=== PATIENT | male | born 1950 | race Caucasian/White ===

== ENCOUNTER → 2022-11-16 14:37 | Outpatient (BNVA) | payer MEDICARE, SELFPAY | PROVIDERS: PCP Internal Medicine; Visit Provider Psychiatry & Neurology Psychiatry | DX: F32.5 Major depressive disorder, single episode, in full remission (principal); F41.1 Generalized anxiety disorder; I10 Essential (primary) hypertension; E11.9 Type 2 diabetes mellitus without complications; E78.00 Pure hypercholesterolemia, unspecified | CPT/HCPCS: 90833; 99212 ==

== ENCOUNTER → 2023-03-15 12:03 | Outpatient (BNVA) | payer MEDICARE, SELFPAY | PROVIDERS: PCP Internal Medicine; Visit Provider Psychiatry & Neurology Psychiatry | DX: F32.5 Major depressive disorder, single episode, in full remission (principal); F41.1 Generalized anxiety disorder; E78.00 Pure hypercholesterolemia, unspecified; E11.9 Type 2 diabetes mellitus without complications; I10 Essential (primary) hypertension | CPT/HCPCS: 90833; 99212 ==

== ENCOUNTER → 2023-05-17 12:14 | Outpatient (BNVA) | payer MEDICARE, SELFPAY | PROVIDERS: PCP Internal Medicine; Visit Provider Psychiatry & Neurology Psychiatry ==

== ENCOUNTER 2023-08-16 10:58 | Outpatient (AMB) | payer MEDICARE, SELFPAY ==
--- NOTE | 2023-08-16 11:30 | MHC.OFFVISPS ---
Intake Intake Visit Reasons: Depression Allergies penicillin V Allergy (Mild, Verified 08/04/21 12:22) Rash Medication List - Last Reconciled 08/16/23 by Dom Ragland MD atorvastatin 80 mg PO DAILY diazepam 2 mg PO DAILY PRN 30 days empagliflozin (Jardiance) 18 mg PO DAILY fluticasone propion-salmeterol 250-50 mcg/dose (Wixela Inhub) 1 ea inhalation BID glipizide ER 5 mg PO lisinopril 20 mg PO DAILY metformin 1,000 mg PO DAILY mirtazapine 15 mg PO BEDTIME propranolol ER 120 mg PO DAILY HPI- Psychiatric Chief Complaint: Depression HPI Narrative: Patient continues to do generally well is a 72-year-old male continues to work 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 Sleep appetite okay ability to enjoy things intact future oriented does tend to ruminate at times. Uses Valium on very intermittent basis. PHQ-9 a 1 JEFFREY 6 No new medical concerns no complaints of side effects to current regimen Past Psychiatric History: With past history of some significant depression anxiety and past panic was in therapy in the past with Dr. James Mental Status Exam Mental Status Exam Patient Appearance: Well Grooomed Patient Orientation: Person, Place and Situation Level of Consciousness: Awake Patient Behavior: Appropriate Mood Description: Happy Affect Description: Calm and Cheerful Memory Description: Intact Hallucinations: None Thought Process: Intact Thought Content: positive for Intact Judgement: Good Assessment and Plan Assessment & Plan (1) Major depression in full remission: Status: Acute Code(s): F32.5 - Major depressive disorder, single episode, in full remission (2) Generalized anxiety disorder: Status: Acute Code(s): F41.1 - Generalized anxiety disorder (3) Diabetes type 2, controlled: Status: Acute Code(s): E11.9 - Type 2 diabetes mellitus without complications Plan Patient generally continues to do well we have discussed limiting use Valium. Mirtazapine continues to be quite helpful. Patient continues to get a lot of satisfaction his work at the [employer] engage with people physically active emotionally intellectually engaged we have discussed issues related to chcf and pros and cons Continue mirtazapine Counseling and coordination of Care Details-Self Mgmt counseling: Issues related to chcf interactions with others family relationships Medication management counseling: Effectiveness Diagnosis and Prognosis Counseling: Adequacy of current interventions Details: I spent [38] minutes reviewing the record, seeing the patient and documenting in the medical record. Counseling provided to the patient/caregiver as outlined below. Addressed patient/caregiver concerns regarding current medication regime including effective adherence. Addressed patient/caregiver concerns regarding diagnosis and prognosis including accuracy of diagnosis, prognosis over time, impact of diagnosis. Addressed patient/caregiver concerns regarding impact of recent stressors. 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
== END 2023-08-16 14:37 | disposition home or self-care (01) ==
LOC: HO.HOP 10:58
PROVIDERS: PCP Internal Medicine; Visit Provider Psychiatry & Neurology Psychiatry
DX: F32.5 Major depressive disorder, single episode, in full remission (principal); F41.1 Generalized anxiety disorder; E11.9 Type 2 diabetes mellitus without complications
CPT/HCPCS: 90833; 99213

== ENCOUNTER → 2023-08-16 10:58 | Outpatient (BNVA) | payer MEDICARE, SELFPAY | PROVIDERS: PCP Internal Medicine; Visit Provider Psychiatry & Neurology Psychiatry | DX: F32.5 Major depressive disorder, single episode, in full remission (principal); F41.1 Generalized anxiety disorder; E11.9 Type 2 diabetes mellitus without complications; Z79.899 Other long term (current) drug therapy | CPT/HCPCS: 90833; 99212 ==

== ENCOUNTER 2023-11-15 11:30 | Outpatient (AMB) | payer MEDICARE, SELFPAY ==
--- NOTE | 2023-11-15 11:48 | A.OFFPSYCH_ITS ---
Intake Intake Visit Reasons: depression Allergies penicillin V Allergy (Mild, Verified 08/04/21 12:22) Rash Medication List - Last Reconciled 11/15/23 by Dom Ragland MD atorvastatin 80 mg PO DAILY diazepam 2 mg PO DAILY PRN 30 days empagliflozin (Jardiance) 18 mg PO DAILY fluticasone propion-salmeterol 250-50 mcg/dose (Wixela Inhub) 1 ea inhalation BID glipizide ER 5 mg PO lisinopril 20 mg PO DAILY metformin 1,000 mg PO DAILY mirtazapine 15 mg PO BEDTIME propranolol ER 120 mg PO DAILY HPI- Psychiatric Chief Complaint: depression HPI Narrative: Pt has been doing well generally has had incidental calcium noted on thoracic exam. The patient's mood continues to be quite stable minimal periods of significant anxiety. He has generally over time developed a better quality of life close relationship with his children and grandchildren. He is thinking about moving perhaps to be closer to his kids. 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 He will be having a medical workup for incidental calcium noted on thoracic screening for pulmonary nodule Past Psychiatric History: With past history of some significant depression anxiety and past panic was in therapy in the past with Dr. James Mental Status Exam Mental Status Exam Patient Appearance: Well Grooomed Patient Orientation: Person, Place and Situation Level of Consciousness: Awake Patient Behavior: Appropriate Mood Description: Happy Affect Description: Calm and Cheerful Ability to Follow Directions: Excellent Speech Pattern: Clear Memory Description: Intact Hallucinations: None Thought Process: Intact Thought Content: positive for Intact Judgement: Good Assessment and Plan Assessment & Plan (1) Major depression in full remission: Status: Acute Code(s): F32.5 - Major depressive disorder, single episode, in full remission (2) Generalized anxiety disorder: Status: Acute Code(s): F41.1 - Generalized anxiety disorder Plan Extensive discussion around issues related to long term aging and the film the patient gets out of continued work. Discussed issues related to maintaining strength balance ways to manage this patient also was noted to have incidental calcium on his coronary arteries and will be having a nuclear stress test. Patient generally stable mirtazapine occasional low-dose diazepam which she has tolerated well for many years Counseling and coordination of Care Diagnosis and Prognosis Counseling: Adequacy of current interventions Details: I spent [38 minutes reviewing the record, seeing the patient and documenting in the medical record. Counseling provided to the patient/caregiver as outlined below. Addressed patient/caregiver concerns regarding current medication regime including effective adherence. Addressed patient/caregiver concerns regarding diagnosis and prognosis including accuracy of diagnosis, prognosis over time, impact of diagnosis. Addressed patient/caregiver concerns regarding impact of recent stressors. 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
== END 2023-11-15 20:14 | disposition home or self-care (01) ==
LOC: HO.HOP 11:31
PROVIDERS: PCP Internal Medicine; Visit Provider Psychiatry & Neurology Psychiatry
DX: F32.5 Major depressive disorder, single episode, in full remission (principal); F41.1 Generalized anxiety disorder
CPT/HCPCS: 90833; 99213

== ENCOUNTER → 2023-11-15 11:30 | Outpatient (BNVA) | payer MEDICARE, SELFPAY | PROVIDERS: PCP Internal Medicine; Visit Provider Psychiatry & Neurology Psychiatry | DX: F32.5 Major depressive disorder, single episode, in full remission (principal); F41.1 Generalized anxiety disorder | CPT/HCPCS: 99212 ==

== ENCOUNTER 2024-02-21 10:56 | Outpatient (AMB) | payer MEDICARE, SELFPAY ==
--- NOTE | 2024-02-21 11:22 | MHC.OFFVISPS ---
Intake Intake Visit Reasons: depression Allergies penicillin V Allergy (Mild, Verified 08/04/21 12:22) Rash Medication List - Last Reconciled 02/21/24 by Dom Ragland MD atorvastatin 80 mg PO DAILY diazepam 2 mg PO DAILY PRN 30 days empagliflozin (Jardiance) 25 mg PO DAILY fluticasone propion-salmeterol 250-50 mcg/dose (Wixela Inhub) 1 ea inhalation BID glipizide ER 5 mg PO lisinopril 20 mg PO DAILY metformin 1,000 mg PO DAILY mirtazapine 15 mg PO BEDTIME propranolol ER 120 mg PO DAILY HPI- Psychiatric Chief Complaint: depression HPI Narrative: Patient generally doing well chronic issues related to skilled nursing versus is peace of mind 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 Continues on mirtazapine very rare loose use of low-dose Valium. Issues related potential to move in conflict did regarding moving closer to his children versus staying where he is. History of generalized anxiety dysphoria but has gained perspective over time which more able to let things go less ruminating patient did have what appears to be nuclear stress test while ago results pending. There is a history diabetes he is concerned about his medical condition Past Psychiatric History: With past history of some significant depression anxiety and past panic was in therapy in the past with Dr. James Mental Status Exam Mental Status Exam Patient Appearance: Well Grooomed Patient Orientation: Person, Place and Situation Level of Consciousness: Awake Patient Behavior: Appropriate Mood Description: Happy Affect Description: Calm and Cheerful Ability to Follow Directions: Excellent Speech Pattern: Clear Memory Description: Intact Hallucinations: None Thought Process: Intact Thought Content: positive for Intact Judgement: Good Assessment and Plan Assessment & Plan (1) Generalized anxiety disorder: Status: Acute Code(s): F41.1 - Generalized anxiety disorder (2) Major depression in full remission: Status: Acute Code(s): F32.5 - Major depressive disorder, single episode, in full remission Plan Issues related to skilled nursing in work extensively discussed continue mirtazapine and low-dose Valium follow-up 4 months Medications: Refilled mirtazapine 15 mg PO BEDTIME 90 tabs 1RF diazepam 2 mg PO DAILY PRN 30 tabs 2RF anxiety 30 days Counseling and coordination of Care Details-Self Mgmt counseling: Perspective is in discussion and elaboration regarding issues related to skilled nursing quality of life pros and cons working level of satisfaction Diagnosis and Prognosis Counseling: Adequacy of current interventions Details: I spent [] minutes reviewing the record, seeing the patient and documenting in the medical record. Counseling provided to the patient/caregiver as outlined below. Addressed patient/caregiver concerns regarding current medication regime including effective adherence. Addressed patient/caregiver concerns regarding diagnosis and prognosis including accuracy of diagnosis, prognosis over time, impact of diagnosis. Addressed patient/caregiver concerns regarding impact of recent stressors. 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
== END 2024-02-21 11:37 | disposition home or self-care (01) ==
LOC: HO.HOP 10:57
PROVIDERS: PCP Internal Medicine; Visit Provider Psychiatry & Neurology Psychiatry
DX: F41.1 Generalized anxiety disorder (principal); F32.5 Major depressive disorder, single episode, in full remission
CPT/HCPCS: 99214

== ENCOUNTER → 2024-02-21 10:56 | Outpatient (BNVA) | payer MEDICARE, SELFPAY | PROVIDERS: PCP Internal Medicine; Visit Provider Psychiatry & Neurology Psychiatry | DX: F41.1 Generalized anxiety disorder (principal); F32.5 Major depressive disorder, single episode, in full remission | CPT/HCPCS: 99212 ==

== ENCOUNTER 2024-06-26 13:39 | Outpatient (AMB) | payer MEDICARE, SELFPAY ==
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
== END 2024-06-26 14:30 | disposition home or self-care (01) ==
LOC: HO.HOP 13:39
PROVIDERS: PCP Internal Medicine; Visit Provider Psychiatry & Neurology Psychiatry
DX: F33.2 Major depressive disorder, recurrent severe without psychotic features (principal); F41.1 Generalized anxiety disorder
CPT/HCPCS: 90833; 99213

== ENCOUNTER → 2024-06-26 13:39 | Outpatient (BNVA) | payer MEDICARE, SELFPAY | PROVIDERS: PCP Internal Medicine; Visit Provider Psychiatry & Neurology Psychiatry | DX: F33.2 Major depressive disorder, recurrent severe without psychotic features (principal); F41.1 Generalized anxiety disorder | CPT/HCPCS: 99212 ==

== ENCOUNTER 2024-07-10 12:59 | Outpatient (AMB) | payer MEDICARE, SELFPAY ==
--- NOTE | 2024-07-10 13:37 | A.OFFPSYCH_ITS ---
Intake Intake Visit Reasons: depression Allergies penicillin V Allergy (Mild, Verified 08/04/21 12:22) Rash HPI- Psychiatric Chief Complaint: depression HPI Narrative: Patient seen psychiatric follow-up. Patient's mood is somewhat improved PHQ-9 much improved no thoughts of self-harm. States he is seeing things in better perspective knows he is not in any place to make any decisions regarding employment nursing home or removing. Feeling better on higher dose mirtazapine . Feeling better able to handle issues at work less reactive and irritable Past Psychiatric History: With past history of some significant depression anxiety and past panic was in therapy in the past with Dr. James Mental Status Exam Mental Status Exam Patient Appearance: Well Grooomed Patient Orientation: Person, Place, Time and Situation Level of Consciousness: Awake and Appropriate Patient Behavior: Appropriate Mood Description: Constricted Affect Description: Appropriate and Blunted Patient Cognition Impaired: No Ability to Follow Directions: Good Speech Pattern: Clear Memory Description: Intact Hallucinations: None Delusions: Not Present Thought Process: Intact and Goal Oriented Thought Content: positive for Goal Oriented, negative for Suicidal Ideation or negative for Homicidal Ideation Depressive Symptoms: Increased Anxiety and Difficulty Concentrating Judgement: Good Judgement and Insight: States he has a better idea of how to handle current situation less overwhelmed Assessment and Plan Assessment & Plan (1) Major depressive disorder, recurrent episode, in partial remission with seasonal pattern: Status: Acute Code(s): F33.41 - Major depressive disorder, recurrent, in partial remission Plan Patient given much education regarding clinical depression strategies discussed seeing someone in more regular counseling mirtazapine increased to 30 mg. 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 Counseling provided to the patient/caregiver as outlined below. Addressed patient/caregiver concerns regarding current medication regime including effective adherence. Addressed patient/caregiver concerns regarding diagnosis and prognosis including accuracy of diagnosis, prognosis over time, impact of diagnosis. Addressed patient/caregiver concerns regarding impact of recent stressors. 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
== END 2024-07-10 13:49 | disposition home or self-care (01) ==
LOC: HO.HOP 12:59
PROVIDERS: PCP Internal Medicine; Visit Provider Psychiatry & Neurology Psychiatry
DX: F33.41 Major depressive disorder, recurrent, in partial remission (principal)
CPT/HCPCS: 99214

== ENCOUNTER → 2024-07-10 12:59 | Outpatient (BNVA) | payer MEDICARE, SELFPAY | PROVIDERS: PCP Internal Medicine; Visit Provider Psychiatry & Neurology Psychiatry | DX: F33.41 Major depressive disorder, recurrent, in partial remission (principal); Z71.89 Other specified counseling | CPT/HCPCS: 99212 ==

== ENCOUNTER 2024-07-31 11:32 | Outpatient (AMB) | payer MEDICARE, SELFPAY ==
--- NOTE | 2024-08-21 22:10 | MHC.OFFVISPS ---
Intake Intake Visit Reasons: depression Allergies penicillin V Allergy (Mild, Verified 08/04/21 12:22) Rash Medication List - Last Reconciled 07/31/24 by Dom Ragland MD atorvastatin 80 mg PO DAILY diazepam 2 mg PO DAILY PRN 30 days empagliflozin (Jardiance) 25 mg PO DAILY fluticasone propion-salmeterol 250-50 mcg/dose (Wixela Inhub) 1 ea inhalation BID glipizide ER 5 mg PO lisinopril 20 mg PO DAILY metformin 1,000 mg PO DAILY mirtazapine 30 mg (2 x 15 mg) PO BEDTIME propranolol ER 120 mg PO DAILY HPI- Psychiatric Chief Complaint: depression HPI Narrative: The patient is feeling much more like himself less anxious future oriented. 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 He is less depressed and ruminating feeling much more like himself. Does not feel he has any position to make any major change this time and we did discuss reviewing his concerns the people he works with in a non confrontational way mirtazapine is 22.5 mg occasional use of Valium low-dose patient denies feeling overly sedated or groggy from medication he is feeling more like himself less ups obsessional less irritable Past Psychiatric History: With past history of some significant depression anxiety and past panic was in therapy in the past with Dr. James Mental Status Exam Mental Status Exam Patient Appearance: Well Grooomed Patient Orientation: Person, Place, Time and Situation Level of Consciousness: Awake and Appropriate Patient Behavior: Appropriate Behavior Comments: Would described does okay improved concentration less reactivity better able to enjoy things Mood Description: Calm Affect Description: Appropriate Patient Cognition Impaired: No Ability to Follow Directions: Good Speech Pattern: Clear Memory Description: Intact Hallucinations: None Delusions: Not Present Thought Process: Intact and Goal Oriented Thought Content: positive for Goal Oriented, negative for Suicidal Ideation or negative for Homicidal Ideation Judgement: Good Judgement and Insight: States much better functioning concentration enjoys his work and interaction with others Assessment and Plan Assessment & Plan (1) Generalized anxiety disorder: Status: Acute Code(s): F41.1 - Generalized anxiety disorder (2) Major depressive disorder, recurrent episode, in partial remission with seasonal pattern: Status: Acute Code(s): F33.41 - Major depressive disorder, recurrent, in partial remission Plan Patient seems to every stabilized. 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 Counseling provided to the patient/caregiver as outlined below. Addressed patient/caregiver concerns regarding current medication regime including effective adherence. Addressed patient/caregiver concerns regarding diagnosis and prognosis including accuracy of diagnosis, prognosis over time, impact of diagnosis. Addressed patient/caregiver concerns regarding impact of recent stressors. 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
== END 2024-07-31 12:02 | disposition home or self-care (01) ==
LOC: HO.HOP 11:32
PROVIDERS: PCP Internal Medicine; Visit Provider Psychiatry & Neurology Psychiatry
DX: F41.1 Generalized anxiety disorder (principal); F33.41 Major depressive disorder, recurrent, in partial remission
CPT/HCPCS: 90833; 99213

== ENCOUNTER → 2024-07-31 11:32 | Outpatient (BNVA) | payer MEDICARE, SELFPAY | PROVIDERS: PCP Internal Medicine; Visit Provider Psychiatry & Neurology Psychiatry | DX: F41.1 Generalized anxiety disorder (principal); F33.41 Major depressive disorder, recurrent, in partial remission | CPT/HCPCS: 99212 ==

== ENCOUNTER 2024-10-09 10:51 | Outpatient (AMB) | payer MEDICARE, SELFPAY ==
--- NOTE | 2024-10-09 11:46 | A.OFFPSYCH_ITS ---
Intake Intake Visit Reasons: depression Allergies penicillin V Allergy (Mild, Verified 08/04/21 12:22) Rash Medication List - Last Reconciled 10/09/24 by Dom Ragland MD atorvastatin 80 mg PO DAILY diazepam 2 mg PO DAILY PRN 30 days empagliflozin (Jardiance) 25 mg PO DAILY fluticasone propion-salmeterol 250-50 mcg/dose (Wixela Inhub) 1 ea inhalation BID glipizide ER 5 mg PO lisinopril 20 mg PO DAILY metformin 1,000 mg PO DAILY mirtazapine 30 mg PO BEDTIME propranolol ER 120 mg PO DAILY HPI- Psychiatric Chief Complaint: depression HPI Narrative: Pt seen in f/u mood has generally been more stable still feels work situation still difficult. 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 Sleep appetite and mood ok Past Psychiatric History: With past history of some significant depression anxiety and past panic was in therapy in the past with Dr. James Mental Status Exam Mental Status Exam Patient Appearance: Well Grooomed Patient Orientation: Person, Place, Time and Situation Level of Consciousness: Awake and Appropriate Patient Behavior: Appropriate Behavior Comments: Would described does okay improved concentration less reactivity better able to enjoy things Mood Description: Appropriate Affect Description: Calm Patient Cognition Impaired: No Ability to Follow Directions: Good Speech Pattern: Clear Memory Description: Intact Hallucinations: None Delusions: Not Present Thought Process: Intact and Goal Oriented Thought Content: positive for Goal Oriented, negative for Suicidal Ideation or negative for Homicidal Ideation Judgement: Good Judgement and Insight: States doing ok has difficulty with assertiveness Assessment and Plan Assessment & Plan (1) Generalized anxiety disorder: Status: Acute Code(s): F41.1 - Generalized anxiety disorder (2) Major depression in full remission: Status: Acute Code(s): F32.5 - Major depressive disorder, single episode, in full remission Plan cont plan of care . mood ok pt stable on reneron reviewed assertiveness techniques Counseling and coordination of Care Details-Self Mgmt counseling: issues related to managing issues at work Details: I spent [] minutes reviewing the record, seeing the patient and documenting in the medical record. Counseling provided to the patient/caregiver as outlined below. Addressed patient/caregiver concerns regarding current medication regime including effective adherence. Addressed patient/caregiver concerns regarding diagnosis and prognosis including accuracy of diagnosis, prognosis over time, impact of diagnosis. Addressed patient/caregiver concerns regarding impact of recent stressors. 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
== END 2024-10-09 11:41 | disposition home or self-care (01) ==
LOC: HO.HOP 10:51
PROVIDERS: PCP Internal Medicine; Visit Provider Psychiatry & Neurology Psychiatry
DX: F41.1 Generalized anxiety disorder (principal); F32.5 Major depressive disorder, single episode, in full remission
CPT/HCPCS: 90833; 99213

== ENCOUNTER → 2024-10-09 10:51 | Outpatient (BNVA) | payer MEDICARE, SELFPAY | PROVIDERS: PCP Internal Medicine; Visit Provider Psychiatry & Neurology Psychiatry | DX: F32.5 Major depressive disorder, single episode, in full remission (principal); F41.1 Generalized anxiety disorder | CPT/HCPCS: 99212 ==

== ENCOUNTER 2025-01-01 10:29 | Outpatient (AMB) | payer MEDICARE, SELFPAY ==
--- NOTE | 2025-01-01 10:44 | A.OFFPSYCH_ITS ---
Intake Intake Visit Reasons: depression Allergies penicillin V Allergy (Mild, Verified 08/04/21 12:22) Rash Medication List - Last Reconciled 01/01/25 by Dom Ragland MD atorvastatin 80 mg PO DAILY diazepam 2 mg PO DAILY PRN 30 days empagliflozin (Jardiance) 25 mg PO DAILY fluticasone propion-salmeterol 250-50 mcg/dose (Wixela Inhub) 1 ea inhalation BID glipizide ER 5 mg PO lisinopril 20 mg PO DAILY metformin 1,000 mg PO DAILY mirtazapine 30 mg PO BEDTIME propranolol ER 120 mg PO DAILY HPI- Psychiatric Chief Complaint: depression HPI Narrative: Pt seen in f/u mood has been ok had recent clouding on ct of lungs will have f/u ct scan sees dr aby maurer stable has 1 brother he sees every 2 wks or so enjoys working 40 hrs wk feels stable on mirtazapine Past Psychiatric History: With past history of some significant depression anxiety and past panic was in therapy in the past with Dr. James Mental Status Exam Mental Status Exam Patient Appearance: Well Grooomed Patient Orientation: Person, Place, Time and Situation Level of Consciousness: Awake and Appropriate Patient Behavior: Appropriate Mood Description: Appropriate Affect Description: Calm Patient Cognition Impaired: No Ability to Follow Directions: Good Speech Pattern: Clear Memory Description: Intact Hallucinations: None Delusions: Not Present Thought Process: Intact and Goal Oriented Thought Content: positive for Goal Oriented, negative for Suicidal Ideation or negative for Homicidal Ideation Judgement: Good Assessment and Plan Assessment & Plan (1) Generalized anxiety disorder: Status: Acute Code(s): F41.1 - Generalized anxiety disorder (2) Major depression in full remission: Status: Acute Code(s): F32.5 - Major depressive disorder, single episode, in full remission Plan Extensive ongoing discussion regarding nursing home issues related to chronic working issues 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 Self Management counseling: General coping skills and Problem solving Details-Self Mgmt counseling: Does not deal well with lack of structure issues related to relaxation always needing to keep busy Medication management counseling: Effectiveness and Side effects Diagnosis and Prognosis Counseling: Impact of diagnosis on life functions and Adequacy of current interventions Details: I spent [38] minutes reviewing the record, seeing the patient and documenting in the medical record. Counseling provided to the patient/caregiver as outlined below. Addressed patient/caregiver concerns regarding current medication regime including effective adherence. Addressed patient/caregiver concerns regarding diagnosis and prognosis including accuracy of diagnosis, prognosis over time, impact of diagnosis. 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
== END 2025-01-01 11:02 | disposition home or self-care (01) ==
LOC: HO.HOP 10:29
PROVIDERS: PCP Internal Medicine; Visit Provider Psychiatry & Neurology Psychiatry
DX: F41.1 Generalized anxiety disorder (principal); F32.5 Major depressive disorder, single episode, in full remission
CPT/HCPCS: 90833; 99213

== ENCOUNTER → 2025-01-01 10:29 | Outpatient (BNVA) | payer MEDICARE, SELFPAY | PROVIDERS: PCP Internal Medicine; Visit Provider Psychiatry & Neurology Psychiatry | DX: F32.5 Major depressive disorder, single episode, in full remission (principal); F41.1 Generalized anxiety disorder; Z71.89 Other specified counseling | CPT/HCPCS: 99212 ==

== ENCOUNTER 2025-06-04 10:33 | Outpatient (AMB) | payer MEDICARE, SELFPAY ==
--- NOTE | 2025-06-04 11:27 | A.OFFPSYCH_ITS ---
Intake Intake Visit Reasons: depression Allergies penicillin V Allergy (Mild, Verified 08/04/21 12:22) Rash HPI- Psychiatric Chief Complaint: depression HPI Narrative: Patient seen psychiatric follow-up. Patient has history of past recurrent depression now significantly improved history of chronic anxiety. Patient on mirtazapine stable on this dose no complaints of side effects. Rare use of Valium . PATIENT ENJOYS THE STRUCTURE OF WORK keeps him grounded gives him social interaction. 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 Past Psychiatric History: With past history of some significant depression anxiety and past panic was in therapy in the past with Dr. James Mental Status Exam Mental Status Exam Patient Appearance: Well Grooomed Patient Orientation: Person, Place, Time and Situation Level of Consciousness: Awake and Appropriate Patient Behavior: Appropriate Mood Description: Appropriate Affect Description: Calm Patient Cognition Impaired: No Ability to Follow Directions: Good Speech Pattern: Clear Memory Description: Intact Hallucinations: None Delusions: Not Present Thought Process: Intact and Goal Oriented Thought Content: positive for Goal Oriented, negative for Suicidal Ideation or negative for Homicidal Ideation Judgement: Good Judgement and Insight: Patient has some difficulty at times with assertiveness to his employers what he can and can not do he does think about moving closer to his children Assessment and Plan Assessment & Plan (1) Generalized anxiety disorder: Status: Acute Code(s): F41.1 - Generalized anxiety disorder (2) Major depression in full remission: Status: Acute Code(s): F32.5 - Major depressive disorder, single episode, in full remission (3) HTN (hypertension): Status: Acute Code(s): I10 - Essential (primary) hypertension (4) Hypercholesteremia: Status: Acute Code(s): E78.00 - Pure hypercholesterolemia, unspecified Plan Pt seen he is generally doing ok on mirtazapine hs diazepam low dose during the wk patient sorting through issues 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 to 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 he knows he does well with structure and with have a hard time with just a large amount of free time we have talked about ways to transition Medications: Refilled mirtazapine 30 mg PO BEDTIME 90 tabs 1RF diazepam 2 mg PO DAILY PRN 30 tabs 2RF anxiety 30 days Counseling and coordination of Care Details-Self Mgmt counseling: Issues related to work and potential assisted knows he would not do well with lack of structure Medication management counseling: Effectiveness Diagnosis and Prognosis Counseling: Adequacy of current interventions Details: I spent [38] minutes reviewing the record, seeing the patient and documenting in the medical record. Counseling provided to the patient/caregiver as outlined below. Addressed patient/caregiver concerns regarding current medication regime including effective adherence. Addressed patient/caregiver concerns regarding diagnosis and prognosis including accuracy of diagnosis, prognosis over time, impact of diagnosis. Addressed patient/caregiver concerns regarding impact of recent stressors. 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
--- OUTSIDE RECORDS SUMMARY | 2025-06-04 11:41 | XMS_ITS | Clinical Summary ---
Author Organization [address] [facility] Address [address] [place] [address] Phone Care Team Providers Care Cell Biology Scientist Name Role Phone Maxi Mcgill MD Primary Care Provider + [phone] Allergies No known active allergies Medications atorvastatin (LIPITOR) 80 mg tablet TAKE 1 TABLET BY MOUTH EVERYDAY AT BEDTIME 90 tablet 1 01/12/2025 Active diazePAM (VALIUM) 2 mg tablet TAKE 1 TABLET BY MOUTH DAILY NEEDED FOR ANXIETY FOR 30 DAYS 11/06/2024 Active Jardiance 25 mg tablet Take 1 tablet (25 mg total) by mouth 1 (one) time each day. Active Wixela Inhub 250-50 mcg/dose diskus inhaler Inhale 1 puff by mouth 2 (two) times a day. Active glipiZIDE (GLUCOTROL XL) 5 mg 24 hr tablet Take 1 tablet (5 mg total) by mouth. Active levoFLOXacin (LEVAQUIN) 750 mg tablet Take 1 tablet (750 mg total) by mouth 1 (one) time each day. 11/06/2024 Active lisinopriL (PRINIVIL,ZESTR IL) 20 mg tablet Take 1 tablet (20 mg total) by mouth 1 (one) time each day. Active metFORMIN (GLUCOPHAGE) 1,000 mg tablet Take 1 tablet (1,000 mg total) by mouth 2 (two) times a day with meals. Active mirtazapine (REMERON) 15 mg tablet Take 1 tablet (15 mg total) by mouth. at bedtime. Active propranolol LA (INDERAL LA) 120 mg 24 hr capsule Take 1 capsule (120 mg total) by mouth 1 (one) time each day. Active Active Problems Problem Noted Date Diagnosed Date Lung nodule 04/27/2025 Lung disease, emphysema ([facility] V24, [facility] V2 8) 04/27/2025 Bruit of left carotid artery 09/14/2022 Overview (04/27/2025): Last Assessment & Plan: Left carotid bruit on physical exam today. Will order carotid ultrasound to ensure no blockages or narrowing given his history of CAD s/p stenting. I will update him of the results as soon as they become available. Coronary artery disease 03/16/2022 Overview (04/27/2025): Last Assessment & Plan: Patient has history of coronary artery disease status post PCI and stenting of the mid RCA in 2017. His last echocardiogram showing a normal LVEF of 55 to 60%. He feels well and denies any exertional anginal symptoms. He continues on cardioprotective medical therapy with aspirin, statin and propranolol. We discussed that if he had coronary artery calcifications that we would continue with risk factor modifying strategies in the absence of symptoms. Patient states that he did have a stress test within the last couple of months. We will obtain those records for review. I have reviewed with the patient the importance of a heart healthy lifestyle which includes eating a low-fat low-salt diet, getting regular exercise, maintaining a healthy weight, not smoking, and following up with routine medical care. Diabetes ([facility] V24, [facility] V28) 03/16/2022 Hyperlipidemia 03/16/2022 Overview (04/27/2025): Last Assessment & Plan: His last LDL cholesterol was 55. This is at goal. Continue with statin as prescribed. Hypertension 03/16/2022 Overview (04/27/2025): Last Assessment & Plan: Well controlled on current medical therapies. No changes today. Skin cancer 03/16/2022 Encounters Date Type Department Care Team Description 04/30/2025 11:15 AM EDT Office Visit Pulmonol - [address] [place] [address] Susan Russo MD Lung nodule (Primary Dx); Centrilobular emphysema (CMS/HCC V24, CMS/HCC V28) [facility] [address] [address] scan appt from Last 3 Months Surgical History Surgery Date Site/Laterality Comments ANGIOPLASTY PROCEDURE: HISTORICAL ANGIOPLASTY W/STENT Medical History Medical History Date Comments Diabetes mellitus type 2, co ntrolled, with complications (CMS/HCC V24, CMS/HCC V28) DX:Diabetes mellitus type 2, controlled, with complications ([facility]) Chronic ischemic heart disease D X:Chronic ischemic heart disease Hyperlipidemia DX:Hyperlipidemi a Essential hypertension DX:Essent ial hypertension Social History Tobacco Use Types Packs/Day Years Used Date Smoking Tobacco: Former Cigarettes Smokeless Tobacco: Never Tobacco Cessation:Counseling Given: Not Answered Alcohol Use Standard Drinks/Week Comments Never 0 (1 standard drink = 0.6 oz pur e alcohol) Sex and Gender Information Value Date Recorded Sex Assigned at Not on file Legal Sex Male 7:16 AM EST Gender Identity Not on file Sexual Orientation Not on file Obstetrics History Last Filed Vital Signs Vital Sign Reading Time Taken Comments Blood Pressure 150/61 04/30/2025 11:19 AM EDT Pulse 59 04/30/2025 11:19 AM EDT Temperature 36.7 C (98 F) 04/30/2025 11:19 AM EDT Respiratory Rate 20 04/30/2025 11:19 AM EDT Oxygen Saturation 98% 04/30/2025 11:19 AM EDT Inhaled Oxygen Concentration - - Weight 68 kg (150 lb) 04/30/2025 11:19 AM EDT Height 175.3 cm (5' 9 ) 04/30/2025 11:19 AM EDT Body Mass Index 22.15 04/30/2025 11:19 AM EDT Plan of Treatment Upcoming Encounters Date Type Department Care Team ([facility] st Contact Info) Description 07/30/2025 10:00 AM EDT [facility] [address] [id number] Susan Russo MD [address] [address] Health Maintenance Due Date Last Done Comments Diabetes: Annual GFR (Glomerular Filtration Rate) 1948 Diabetes: Annual Foot Exam 1958 Diabetes: Annual Retina Eye Exam 1958 DTaP,Tdap,and Td Vaccines (1 - Tdap) 1967 Zoster Vaccines (2 of 3) 08/21/2013 06/26/2013 Pneumococcal Vaccine: 50+ Years (2 of 2 - PPSV23) 01/31/2016 12/06/2015 Cholesterol Screening (Lipid Panel) 09/20/2022 Falls Risk Assessment 09/20/2022 Hepatitis C Screening 09/20/2022 Hypertension/CHF/CAD Annual BMP Blood Test 09/20/2022 Medicare Annual Wellness Visit 09/20/2022 Social Influencers of Health Screening 09/20/2022 Diabetes: Annual Urine Albumin-Creatinine Ratio (uACR) 09/24/2022 Diabetes: Blood Sugar Control Test (HGBA1C) 09/24/2022 RSV Immunization Adult Patients (1 - 1-dose 75+ series) 2023 COVID-19 Vaccine ( season) 2024 07/19/2022, 08/11/2021, 01/27/2021, Additional history exists Depression Screening 10/11/2024 Influenza Vaccine (#1) 2025 3, 07/19/2022, 08/11/2021, Additional history exists HIB Vaccines Aged Out No longer eligi ble based on patient's age to complete this topic HPV Vaccines Aged Out No longer eligi ble based on patient's age to complete this topic Hepatitis A Vaccines Aged Out No long er eligible based on patient's age to complete this topic Hepatitis B Vaccines Aged Out No long er eligible based on patient's age to complete this topic IPV Vaccines Aged Out No longer eligi ble based on patient's age to complete this topic MMR Vaccines Aged Out No longer eligi ble based on patient's age to complete this topic Meningococcal ACWY Vaccine Aged Out N o longer eligible based on patient's age to complete this topic Meningococcal B Vaccine Aged Out No l onger eligible based on patient's age to complete this topic RSV Immunization Patients Under 20 months Aged Out No longer eligible based on patient's age to complete this topic Varicella Vaccines Aged Out No longer eligible based on patient's age to complete this topic Insurance [employer] Care Teams Cell Biology Scientist Relationship Specialty Start Date End Date Maxi Mcgill MD [address] [place] [address] PCP - General 01/19/14
== END 2025-06-04 11:16 | disposition home or self-care (01) ==
LOC: HO.HOP 10:33
PROVIDERS: PCP Internal Medicine; Visit Provider Psychiatry & Neurology Psychiatry
DX: F41.1 Generalized anxiety disorder (principal); F32.5 Major depressive disorder, single episode, in full remission; I10 Essential (primary) hypertension; E78.00 Pure hypercholesterolemia, unspecified
CPT/HCPCS: 90833; 99213

== ENCOUNTER → 2025-06-04 10:33 | Outpatient (BNVA) | payer MEDICARE, SELFPAY | PROVIDERS: PCP Internal Medicine; Visit Provider Psychiatry & Neurology Psychiatry | DX: F41.1 Generalized anxiety disorder (principal); F32.5 Major depressive disorder, single episode, in full remission; Z79.899 Other long term (current) drug therapy | CPT/HCPCS: 99212 ==

== ENCOUNTER 2025-09-17 11:25 | Outpatient (AMB) | payer MEDICARE, SELFPAY ==
--- NOTE | 2025-09-17 11:42 | MHC.OFFVISPS ---
Intake Intake Visit Reasons: depression Allergies penicillin V Allergy (Mild, Verified 08/04/21 12:22) Rash Medication List - Last Reconciled 09/17/25 by Dom Ragland MD atorvastatin 80 mg PO DAILY diazepam 2 mg PO DAILY PRN 30 days empagliflozin (Jardiance) 25 mg PO DAILY fluticasone propion-salmeterol 250-50 mcg/dose (Wixela Inhub) 1 ea inhalation BID glipizide ER 5 mg PO lisinopril 20 mg PO DAILY metformin 1,000 mg PO DAILY mirtazapine 30 mg PO BEDTIME propranolol ER 120 mg PO DAILY HPI- Psychiatric Chief Complaint: depression HPI Narrative: Pt seen in f/u mood generally good , 11:38 AM (32m) PATIENT SUMMARY The patient presented for a follow-up appointment concerning ongoing management of anxiety and the use of mirtazapine and Valium. HPI The patient expressed feeling generally satisfied with their job, noting that they enjoy the interaction with customers and the routine it provides. Despite working long hours, the patient believed that staying active offered them a sense of purpose. The patient acknowledged experiencing anxiety, particularly when under pressure to complete tasks, but reported that speaking up about workload has been helpful. The patient mentioned taking Valium occasionally, about once or twice a week, to manage anxiety symptoms. They stated that their anxiety symptoms have improved over time, and they described a situation where they calmly addressed a customer issue without becoming overly anxious or aggressive. PAIN The patient did not report any pain during the visit. BACKGROUND The patient did not report any new allergies or medications. They mentioned having some urinary issues, such as waking up at night to urinate and experiencing urgency, but denied having a slow urinary stream. The patient noted that their PSA levels were slightly elevated, but follow-up would occur in December. The patient is currently prescribed mirtazapine 30 mg and takes 2 mg Valium occasionally, about once or twice a week. Past Psychiatric History: With past history of some significant depression anxiety and past panic was in therapy in the past with Dr. James Mental Status Exam Mental Status Exam Patient Appearance: Well Grooomed Patient Orientation: Person, Place, Time and Situation Level of Consciousness: Awake and Appropriate Patient Behavior: Appropriate Mood Description: Appropriate Affect Description: Calm Patient Cognition Impaired: No Ability to Follow Directions: Good Speech Pattern: Clear Memory Description: Intact Hallucinations: None Delusions: Not Present Thought Process: Intact and Goal Oriented Thought Content: positive for Goal Oriented, negative for Suicidal Ideation or negative for Homicidal Ideation Judgement: Good Assessment and Plan Assessment & Plan (1) Generalized anxiety disorder: Status: Acute Code(s): F41.1 - Generalized anxiety disorder (2) Major depression in full remission: Status: Acute Code(s): F32.5 - Major depressive disorder, single episode, in full remission Plan Patient doing well patient medically stable content remaining present situation continues to work full-time knows he does best with structure and enjoys his work. On mirtazapine 30 mg no panic anxiety depressive symptoms and control. Rare use of Valium 2 mg patient aware risks benefits potential side effects Medications: Refilled mirtazapine 30 mg PO BEDTIME 90 tabs 1RF diazepam 2 mg PO DAILY PRN 30 tabs 2RF anxiety 30 days Counseling and coordination of Care Medication management counseling: Effectiveness and Side effects Diagnosis and Prognosis Counseling: Impact of diagnosis on life functions and Adequacy of current interventions Details: I spent [36] minutes reviewing the record, seeing the patient and documenting in the medical record. Counseling provided to the patient/caregiver as outlined below. Addressed patient/caregiver concerns regarding current medication regime including effective adherence. Addressed patient/caregiver concerns regarding diagnosis and prognosis including accuracy of diagnosis, prognosis over time, impact of diagnosis. Addressed patient/caregiver concerns regarding impact of recent stressors. 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
== END 2025-09-17 12:04 | disposition home or self-care (01) ==
LOC: HO.HOP 11:25
PROVIDERS: PCP Internal Medicine; Visit Provider Psychiatry & Neurology Psychiatry
DX: F41.1 Generalized anxiety disorder (principal); F32.5 Major depressive disorder, single episode, in full remission
CPT/HCPCS: 90833; 99213

== ENCOUNTER → 2025-09-17 11:25 | Outpatient (BNVA) | payer MEDICARE, SELFPAY | PROVIDERS: PCP Internal Medicine; Visit Provider Psychiatry & Neurology Psychiatry | DX: F41.1 Generalized anxiety disorder (principal); F32.5 Major depressive disorder, single episode, in full remission; Z79.899 Other long term (current) drug therapy | CPT/HCPCS: 99212 ==